=== PATIENT | male | born 1955 | race Caucasian/White ===

== ENCOUNTER 2020-05-03 10:27 | Emergency (ER) | payer BC ==
[~2020-05-03] VITALS: Ht 182.9 cm; Wt 77.3 kg
[2020-05-03 10:28] VITALS: BP 109/82
[2020-05-04] MEDS ORDERED: DOXY100C2 PO (16:46)
[2020-05-04] MEDS ORDERED: AMOX-115 PO (16:46)
== END 2020-05-03 11:25 | disposition home or self-care (01) ==
LOC: EDSEX → ER 10:28
DX: R05 Cough (principal); R53.83 Other fatigue
CPT/HCPCS: 99281

== ENCOUNTER 2020-05-04 14:17 | Emergency (ER) | payer BC ==
[~2020-05-04] VITALS: Ht 185.4 cm; Wt 75.0 kg
[2020-05-04] MEDS ORDERED: normal saline 1000ml 1,000 ML IV ONE (14:25)
[2020-05-04] MEDS ORDERED: acetaminophen 325mg tablet PO ONE (14:45)
[2020-05-04 14:53] LABS: BASOPHILS % (AUTO) 0.3 % (0-1); EOSINOPHILS % (AUTO) 0 % (0-6); HEMOGLOBIN 12.6 g/dl (12.0-16.0); LYMPHOCYTES # (AUTO) 1.5 X10'3 (1.1-4.8); LYMPHOCYTES % (AUTO) 14.4 % (21-51); MEAN CORPUSCULAR HEMOGLOBIN 32.1 PG (27.0-31.0); MEAN CORPUSCULAR HGB CONC 34.1 g/dL (33.0-36.5); MEAN CORPUSCULAR VOLUME 94.1 FL (78-98); MEAN PLATELET VOLUME 7.9 FL (7.4-10.4); MONOCYTES # (AUTO) 0.8 X10'3 (0-0.9); NEUTROPHILS # (AUTO) 7.9 X10'3 (1.8-7.7); NEUTROPHILS % (AUTO) 77.3 % (42-75); PLATELET COUNT 203 X10'3 (140-440); RED BLOOD COUNT 3.93 X10'6 (4.20-5.60); WHITE BLOOD COUNT 10.2 X10'3 (4.5-11.0)
[2020-05-04 15:09] LABS: ALANINE AMINOTRANSFERASE 18 U/L (12-78); ALBUMIN 2.5 G/DL (3.4-5.0); ALBUMIN/GLOBULIN RATIO 0.8 (1.1-1.5); ALKALINE PHOSPHATASE 50 IU/L (46-116); ANION GAP 5 (8-16); ASPARTATE AMINO TRANSFERASE 13 U/L (10-37); BILIRUBIN,TOTAL 0.4 MG/DL (0.1-1.0); BLOOD UREA NITROGEN 17 MG/DL (7-18); BUN/CREATININE RATIO 13.3 (6.6-38.0); CHLORIDE 103 MMOL/L (99-107); CREATININE 1.28 MG/DL (0.40-0.90); GLUCOSE 105 MG/DL (70-104); POTASSIUM 3.8 MMOL/L (3.5-5.1); SODIUM 140 MMOL/L (135-145); TOTAL CARBON DIOXIDE 31.9 MMOL/L (24-32); TOTAL PROTEIN 5.8 G/DL (6.4-8.2); eGFR 42 ML/MIN
[2020-05-04 15:42] LABS: CLARITY,URINE CLEAR (Clear); COLOR,URINE YELLOW (Yellow); GLUCOSE, URINE NEGATIVE (Neg); KETONES,URINE NEGATIVE (Neg); LEUKOCYTE ESTERASE ,URINE NEGATIVE (Neg); NITRITES, URINE NEGATIVE (Neg); OCCULT BLOOD,URINE NEGATIVE (Neg); PROTEIN,URINE TRACE mg/dl (Neg)
[2020-05-04 15:46] LABS: UA COLLECTION TYPE CLN CATCH MIDSTREAM
[2020-05-04 15:49] LABS: BACTERIA,URINE NONE SEEN /HPF (Neg); FINE GRANULAR CAST 0-3 /LPF (NEGATIVE); HYALINE CASTS 0-3 /LPF (NEGATIVE); MUCUS STRANDS FEW /LPF (Neg); RBC,URINE 0-2 /HPF (0-2); SQUAMOUS EPITHELIAL CELL,UR NONE SEEN /LPF (FEW); WBC,URINE 0-4 /HPF (0-4)
[2020-05-04 15:59] VITALS: BP 104/72
[2020-05-04] MEDS ORDERED: AMOX-115 PO (16:46)
[2020-05-04] MEDS ORDERED: DOXY100C2 PO (16:46)
== END 2020-05-04 17:32 | disposition home or self-care (01) ==
LOC: ER 14:18 → EDSEX 14:18 → ER 17:32
DX: J18.9 Pneumonia, unspecified organism (principal); R53.83 Other fatigue; R50.9 Fever, unspecified; Z79.2 Long term (current) use of antibiotics
CPT/HCPCS: 36415; 71045; 80053; 81001; 84484; 85025; 93005; 96360; 99285; J7030